=== PATIENT | male | born 1950 | race Caucasian/White ===

== ENCOUNTER 2017-02-07 09:03 | Day surgery (SDC) | payer OTHER ==
[2017-02-07] MEDS ORDERED: diphenhydrAMINE 25 MG CAP PO ONE ×2 (09:11→09:36)
[2017-02-07] MEDS ORDERED: ASPIRIN EC 325 MG TAB PO ONE ×2 (09:11→09:36)
[2017-02-07] MEDS ORDERED: FAMOTIDINE 20 MG TAB PO ONE (09:11)
[2017-02-07] MEDS ORDERED: DIAZEPAM 5 MG TAB PO ONE (09:11)
[2017-02-07] MEDS ORDERED: NS 1,000 ML IV ONE (09:11)
--- NOTE | 2017-02-07 09:33 | CPEKG ---
Heart Rate: 53 RR Interval: 1132 P-R Interval: 180 QRSD Interval: 110 QT Interval: 444 QTC Interval: 417 P [place]: 48 QRS [place]: -54 T Wave [place]: 12 EKG Severity - ABNORMAL ECG - EKG Impression: SINUS RHYTHM EKG Impression: LEFT ANTERIOR FASCICULAR BLOCK Electronically Signed By: Jimmy Griffith 07-Feb-2017 15:18:23
[2017-02-07] MEDS ORDERED: FAMOTIDINE 20 MG TAB ONE (09:36)
[2017-02-07] MEDS ORDERED: DIAZEPAM 5 MG TAB ONE (09:36)
[2017-02-07 09:42] LABS: % IMMATURE GRANULYOCYTES 0.2 % (0.0-1.1); ABSOLUTE IMMATURE GRANULOCYTES 0.03 10^3/uL (0.00-0.10); ADD DIFF? NO; ADD MORPH? NO; ADD SCAN? YES; ATYPICAL LYMPHOCYTE FLAG 90 (0-99); FRAGMENT RBC FLAG 0 (0-99); HEMATOCRIT 47.8 % (40.0-51.0); HEMOGLOBIN 16.9 g/dL (13.7-17.5); LEFT SHIFT FLG 0 (0-99); LIPEMIA HEMOLYSIS FLAG 90 (0-99); MEAN CELL HEMOGLOBIN 32.5 pg (27.9-34.1); MEAN CELL HEMOGLOBIN CONCENTR. 35.4 g/dL (32.4-36.7); MEAN CELL VOLUME 91.9 fL (81.5-99.8); MEAN PLATELET VOLUME 9.8 fL (8.7-11.7); PLATELET CLUMPS FLAG 10 (0-99); PLATELET COUNT 191 10^3/uL (150-400); RED CELL DISTRIBUTION WIDTH 12.2 % (11.5-15.2)
[2017-02-07] MEDS ORDERED: LIDOCAINE 1% 300 MG/30 ML SDV ONE (09:42)
[2017-02-07] MEDS ORDERED: fentaNYL 100 MCG/2 ML INJ ONE (09:43)
[2017-02-07] MEDS ORDERED: MIDAZOLAM 2 MG/2 ML VIAL ONE ×3 (09:43→11:49)
[2017-02-07] MEDS ORDERED: IOPAMIDOL (ISOVUE-370) 150 ML BTL IV ONE (09:44)
[2017-02-07 09:50] LABS: INR 0.99 (0.83-1.16)
[2017-02-07 09:58] LABS: ANION GAP 12 mEq/L (8-16); CALCIUM 9.9 mg/dL (8.5-10.4); CARBON DIOXIDE 24 mEq/l (22-31); CHLORIDE 102 mEq/L (97-110); CHOLESTEROL 111 mg/dL (140-220); CHOLESTEROL/HDL RATIO 3.47 RATIO (1.00-4.97); CREATININE 1.2 mg/dL (0.7-1.3); GLOMERULAR FILTRATION RATE > 60; GLUCOSE 89 mg/dL (70-100); HIGH DENSITY LIPOPROTEIN 32 mg/dL (40-65); LOW DENSITY LIPOPROTEIN 64 mg/dL (80-100); NON-HIGH DENSITY LIPOPROTEIN 79 mg/dL (90-129); POTASSIUM 4.2 mEq/L (3.5-5.2); SODIUM 138 mEq/L (134-144); TRIGLYCERIDE 77 mg/dL (40-150); VERY LOW DENSITY LIPOPROTEINS 15 mg/dL (8-25)
[2017-02-07 10:20] LABS: SCAN POSITIVE
[2017-02-07 10:36] LABS: PLATELET ESTIMATE ADEQUATE (ADEQ)
[2017-02-07] MEDS ORDERED: ONDANSETRON 4 MG/2 ML VIAL IVP PRN (12:18)
[2017-02-07] MEDS ORDERED: HYDROCODONE/APAP 5/325 TAB PO PRN (12:18)
[2017-02-07] MEDS ORDERED: OXYCODONE/APAP 5/325 TAB PO PRN (12:18)
[2017-02-07] MEDS ORDERED: ATROPINE SULFATE 1 MG/10 ML SYR IVP PRN (12:18)
[2017-02-07] MEDS ORDERED: NITROGLYCERIN 0.4 MG BTL SL PRN (12:18)
--- NOTE | 2017-02-07 13:02 | CPIP ---
[f rep st] INVASIVE CARDIAC PROCEDURE DATE OF PROCEDURE: 02/07/2017 PROCEDURE PERFORMED: Diagnostic left heart catheterization. INDICATION FOR PROCEDURE: Patient with ongoing complaints of exertional intolerance, fatigue, and c hest pain. Patient with moderate risk findings, with evidence moderate-sized area of inferior ische cristian on nuclear stress test, coupled with coronary artery disease based on calcium score. PROCEDURE PERFORMED: 1. Left heart catheterization. 2. Left coronary angiography. 3. Right coronary angiography. 4. Left ventriculogram. 5. Right common femoral artery angiography. 6. Angio-Seal closure device. DESCRIPTION OF PROCEDURE: After informed consent was obtained, the patient was brought to the [facility] catheterization lab, where he was prepped and draped in sterile fashion. Using a modified Seldin velia technique, a 6-Cymro catheter was placed into the right common femoral artery without complicat ions. JL4 catheter was used to take images of the left coronary anatomy in multiple projections. J L4 catheter was exchanged over a guidewire for a JR4 catheter. JR4 catheter was used to take images of the right coronary artery in multiple projections. JR4 catheter was exchanged over a guidewire for an angled pigtail catheter. Angled pigtail catheter was used to cross the aortic valve. Left v entriculogram was performed. LVEDP was assessed. Aortic valve gradient was assessed. Angled pigta il catheter was removed over a guidewire without complications. Images of the right common femoral artery site were obtained, demonstrating appropriate placement of the 6-Cymro sheath above the bifu rcation of the right common femoral artery, and below the inguinal ligament at the mid femoral head. FINDINGS: Left main normal size and caliber. It bifurcates into a left anterior descending and lef t circumflex coronary artery. There is no evidence of coronary disease within the left main. Left anterior descending artery demonstrates 20% ostial stenosis. There are some mild luminal irreg ularities within the mid LAD. There is a small first and moderate-sized second diagonal branch, wit h no evidence of coronary disease. Left circumflex artery is a codominant vessel. The circumflex gives rise to approximately to a larg e first obtuse marginal branch. There is no evidence of coronary disease within the circumflex vess el, or within the obtuse marginal branch. Right coronary artery branches into a PDA and PLV branch. There is no evidence of coronary disease within the right coronary artery. HEMODYNAMICS: LVEF 50%. LVEDP 17 mmHg. Aortic valve gradient none. CONCLUSIONS: 1. Mild nonobstructive coronary artery disease. Most prominent segment is in the ostial left anter ior descending. There is 20% narrowing of the ostial left anterior descending. 2. Mildly reduced left ventricular ejection fraction of 50%. PLAN: Will plan on optimizing medical management. /[id number]/MODL
== END 2017-02-07 16:00 | disposition home or self-care (01) ==
LOC: FCATH 09:03
PROVIDERS: ATTEND Internal Medicine Cardiovascular Disease
PROC: 4A023N7 Measurement of Cardiac Sampling and Pressure, Left Heart, Percutaneous Approach (ICD-10-PCS; principal; 2017-02-07)
PROC: B2151ZZ Fluoroscopy of Left Heart using Low Osmolar Contrast (ICD-10-PCS; principal; 2017-02-07)
PROC: B2111ZZ Fluoroscopy of Multiple Coronary Arteries using Low Osmolar Contrast (ICD-10-PCS; principal; 2017-02-07)
DX: R94.39 Abnormal result of other cardiovascular function study (principal); R07.9 Chest pain, unspecified; I25.10 Atherosclerotic heart disease of native coronary artery without angina pectoris; R53.83 Other fatigue; I10 Essential (primary) hypertension; B19.20 Unspecified viral hepatitis C without hepatic coma
CPT/HCPCS: C1760; J1644; J2250; J3010; Q9967

== ENCOUNTER → 2017-08-17 | Outpatient (CLI) | payer OTHER | LOC: BMCIMAGING 10:05 | PROVIDERS: ATTEND Orthopaedic Surgery Hand Surgery | DX: M19.012 Primary osteoarthritis, left shoulder (principal); M25.511 Pain in right shoulder; M79.671 Pain in right foot ==